=== PATIENT | female | born 1980 | race Two or more races ===

== ENCOUNTER 2019-08-08 18:06 | Emergency (ER) | payer BC, OTHER ==
[2019-08-08 18:26] VITALS: BMI 23.4
[2019-08-08] MEDS ORDERED: METOCLOPRAMIDE HCL INJECTION 10 MG/2 ML VIAL IVPUSH ONE (18:26)
[2019-08-08] MEDS ORDERED: ACETAMINOPHEN 1000 MG/100 ML VIAL (NON FORMULARY) IVPB ONE (18:26)
[2019-08-08] MEDS ORDERED: SODIUM CHLORIDE 1,000 ML IV STA (18:26)
--- NOTE | 2019-08-08 18:26 | PDOC ---
Rapid Medical Evaluation Time Seen by Provider: 08/08/19 18:20 Medical Evaluation: 08/08/19 18:21 The patient presents to the ER today for evaluation of headache starting today. Took naproxen esomoprazole with some relief of symptoms Exam: No gross neuro deficits Orders: Labs, meds Pt to proceed to the ER for further evaluation Discharge Disposition - Diagnosis Headache - Referrals - Patient Instructions - Post Discharge Activity
[2019-08-08 19:25] LABS: BASO % 1.2 % (0-2.0); EOS % 1.1 % (0-4.5); HEMATOCRIT 40.7 % (32.4-45.2); HEMOGLOBIN 13.8 GM/dL (10.7-15.3); LYMPH % 31.2 % (8-40); MCH 31.7 pg (25.7-33.7); MCHC 33.9 g/dl (32.0-36.0); MEAN CELL VOLUME 93.6 fl (80-96); MEAN PLT VOLUME 9.1 fl (7.5-11.1); MONO % 7.1 % (3.8-10.2); NEUT % 59.4 % (42.8-82.8); PLATELET COUNT 276 K/MM3 (134-434); RBC 4.35 M/mm3 (3.60-5.2); RDW 14.1 % (11.6-15.6); WHITE BLOOD COUNT 7.7 K/mm3 (4.0-10.0)
--- NOTE | 2019-08-08 20:12 | PDOC ---
History of Present Illness - General Chief Complaint: Headache Stated Complaint: DIFICULTY BREATHING Time Seen by Provider: 08/08/19 18:20 - History of Present Illness Initial Comments: 08/08/19 20:51 HPI: 39 y/o F with hx of headaches x2 years and x1 seizure currently receiving significant outpatient neurological eval presenting with headache since this morning. She said she woke up and felt a severe headache. Described as sinus pressure with radiation to BL ears. 6/10 pain and minimally relieved by home med of vimovo (naproxen formulary). Around 3pm she felt the headache get worse gradually and started feeling difficulty breathing. SOB self resolved after 10min after going outside. She denies fever, chills, emesis, photophobia, vision changes, LH, dizziness, neck stiffness, chest pain, palpitations, abd pain, dysuria. Of note, recent MRI with no acute pathology PMHx: as noted above ROS: as noted SHx: Denies tobacco use; no alcohol use; no rec drugs Allergies: NKDA ROS: GENERAL/CONSTITUTIONAL: No fever or chills. No weakness. HEAD, EYES, EARS, NOSE AND THROAT: No change in vision. No ear pain or discharge. No sore throat. CARDIOVASCULAR: No chest pain; +SOB RESPIRATORY: No cough, wheezing, or hemoptysis. GASTROINTESTINAL: No nausea, vomiting, diarrhea or constipation. GENITOURINARY: No dysuria, frequency, or change in urination. MUSCULOSKELETAL: No joint or muscle swelling or pain. No neck or back pain. SKIN: No rash NEUROLOGIC: +headache; no vertigo, loss of consciousness, or change in strength/ sensation. ENDOCRINE: No increased thirst. No abnormal weight change HEMATOLOGIC/LYMPHATIC: No anemia, easy bleeding, or history of blood clots. ALLERGIC/IMMUNOLOGIC: No hives or skin allergy. PE: GENERAL: Awake, alert, and fully oriented, no acute distress HEAD: No signs of trauma, normocephalic, atraumatic EYES: EOMI, PERRLA, sclera anicteric, conjunctiva clear ENT: Auricles normal inspection, hearing grossly normal, nares patent, oropharynx clear without exudates. Moist mucosa NECK: Normal ROM, no lymphadenopathy LUNGS: No increased work of breathing, symmetrical chest rise, clear to auscultation bilaterally, no wheezes, crackles or rhonchi HEART: Regular rate and rhythm, normal S1 and S2, no murmurs, peripheral pulses 2+ and equal bilaterally. ABDOMEN: Soft, nondistended, nontender, normoactive bowel sounds. No guarding, no rebound. No masses. No CVAT EXTREMITIES: Normal inspection, Normal range of motion, no edema. No clubbing or cyanosis. NEUROLOGICAL: Cranial nerves II through XII grossly intact. Normal speech, normal gait, no focal sensorimotor deficits SKIN: Warm, Dry, normal turgor, no rashes or lesions noted Past History - Past Medical History Allergies/Adverse Reactions: Allergies Allergy/AdvReac Type Severity Reaction Status Date / Time No Known Allergies Allergy Verified 08/08/19 19:20 COPD: No Seizures: Yes Other medical history: HEADACHE - Psycho Social/Smoking Cessation Hx Smoking History: Never smoked Hx Alcohol Use: No Drug/Substance Use Hx: No *Physical Exam - Vital Signs Last Vital Signs Temp Pulse Resp BP Pulse Ox 98.1 F 85 16 101/69 97 08/08/19 18:14 08/08/19 18:14 08/08/19 18:14 08/08/19 18:14 08/08/19 18:14 ED Treatment Course - LABORATORY CBC & Chemistry Diagram: 08/08/19 18:50 08/08/19 18:50 - ADDITIONAL ORDERS Additional order review: Laboratory Results 08/08/19 18:50 Sodium Cancelled Potassium Cancelled Chloride Cancelled Carbon Dioxide Cancelled Anion Gap Cancelled BUN Cancelled Creatinine Cancelled Est GFR (CKD-EPI)AfAm Cancelled Est GFR (CKD-EPI)NonAf Cancelled Random Glucose Cancelled Calcium Cancelled Total Bilirubin Cancelled AST Cancelled ALT Cancelled Alkaline Phosphatase Cancelled Total Protein Cancelled Albumin Cancelled 08/08/19 18:50 RBC 4.35 MCV 93.6 MCHC 33.9 RDW 14.1 MPV 9.1 Neutrophils % 59.4 Lymphocytes % 31.2 Monocytes % 7.1 Eosinophils % 1.1 Basophils % 1.2 - Medications Given in the ED: ED Medications Discontinued Medications Generic Name Dose Route Start Last Admin Trade Name Freq PRN Reason Stop Dose Admin Acetaminophen 1,000 mg 08/08/19 18:26 08/08/19 19:24 Ofirmev Injection - IVPB 08/08/19 18:27 1,000 mg ONCE ONE Administration Diphenhydramine HCl 12.5 mg 08/08/19 18:26 08/08/19 19:23 Benadryl Injection - IVPB 08/08/19 18:27 12.5 mg ONCE ONE Administration Sodium Chloride 1,000 mls @ 1,000 mls/hr 08/08/19 18:26 08/08/19 19:24 Normal Saline - IV 08/08/19 19:25 1,000 mls/hr ASDIR STA Administration Metoclopramide HCl 10 mg 08/08/19 18:26 08/08/19 19:24 Reglan Injection - IVPUSH 08/08/19 18:27 10 mg ONCE ONE Administration Medical Decision Making - Medical Decision Making 08/08/19 21:58 39 y/o F with hx of headaches x2 years and x1 seizure currently receiving significant outpatient neurological eval presenting with headache since this morning. VSS, AF. No focal neuro deficits -ivf, ofirmev, benadryl, reglan 08/08/19 22:01 patient reassessed and headache has resolved discussed with patient plan for DC and pcp followup; patient understands instruction and return pcxn and will be DCd Discharge - Discharge Information Problems reviewed: Yes Clinical Impression/Diagnosis: Headache Qualifiers: Headache type: unspecified Headache chronicity pattern: acute headache Intractability: not intractable Qualified Code(s): R51 - Headache Condition: Improved Disposition: HOME - Follow up/Referral Referrals: Yudelka Sandoval MD [Primary Care Provider] - - Patient Discharge Instructions Patient Printed Discharge Instructions: DI for Migraine Additional Instructions: Additional instructions: Please return to the ED with any or new concerning symptoms including worsening headache, weakness, slurred speech, fainting, vomiting Please followup with your PCP and neurologist Recommending appropriate sleep hygiene: minimize caffeine prior to sleep, minimize screen time prior to sleep, healthy diet, Continue taking medications as prescribed - Post Discharge Activity
--- NOTE | 2019-08-08 20:57 | PDOC ---
Documentation entered by Serafin Carlisle SCRIBE, acting as scribe for Anila Schwab MD. Anila Schwab MD: This documentation has been prepared by the Orestes humphries Nirvannie, SCRIBE, under my direction and personally reviewed by me in its entirety. I confirm that the documentation accurately reflects all work, treatment, procedures, and medical decision making performed by me. Attending Attestation - Resident Resident Name: Fabrizio Rodriguez - ED Attending Attestation I have performed the following: I have examined & evaluated the patient, The case was reviewed & discussed with the resident, I agree w/resident's findings & plan - HPI HPI: 08/08/19 20:52 39-year-old female presents with worsening headache. HPI she has had headaches almost every day since having a seizure in May. She is followed by a neurologist Dr. Akhtar and has had a recent brain MRI that was negative for any acute findings. She has also had a recent EEG done. - Physicial Exam PE: 08/08/19 20:55 Well-nourished well developed 39-year-old female in no acute distress head normocephalic atraumatic Neck supple Lungs clear to auscultation bilaterally CVS regular rate and rhythm S1-S2 Abdomen flat nontender Extremities no lower extremity edema Skin warm and dry Neuro alert and oriented x3, no focal neuro deficits Psych slightly anxious - Medical Decision Making 08/08/19 39-year-old female recently diagnosed with persistent headaches for the last 2 months who is being followed by Dr. Susan Tejeda She is been placed on Lexapro, Wellbutrin, Spironolactone and also uses a breakthrough headache medicine Vimovo (naprosyn variant) She did not have any nausea vomiting, or speech deficits or motor weakness or numbness associated with this headache 08/08/19 21:00 She came today because she was concerned that the headache was a bit worse than her usual headaches and she gave it a 6 out of 10 on the pain scale Her headache has essentially resolved and was being discharged home to follow- up with a neurologist
[2019-08-08 21:11] VITALS: BP 92/66; PULSE 80; TEMP 98
[2019-08-09 13:51] LABS: ALBUMIN 3.4 g/dl (3.4-5.0); BILIRUBIN,TOTAL 0.2 mg/dL (0.2-1); BLOOD UREA NITROGEN 6.8 mg/dL (7-18); CREATININE 0.7 mg/dL (0.55-1.3); POTASSIUM 3.6 mmol/L (3.5-5.1); TOT PROT 5.9 g/dl (6.4-8.2)
--- NOTE | 2019-08-10 10:23 | EKG ---
Test Reason : Blood Pressure : / mmHG Vent. Rate : 073 BPM Atrial Rate : 073 BPM P-R Int : 110 ms QRS Dur : 086 ms QT Int : 392 ms P-R-T Axes : 046 073 062 degrees QTc Int : 431 ms SINUS RHYTHM WITH SHORT PA OTHERWISE NORMAL ECG NO PREVIOUS ECGS AVAILABLE Confirmed by KAY PICKETT, FREDDIE ([id number]) on 08/10/2019 10:23:38 AM Referred By: Confirmed By:FREDDIE VILLANUEVA MD
== END 2019-08-08 21:16 | disposition home or self-care (01) ==
LOC: JER 18:06
PROC: 3E033GC Introduction of Other Therapeutic Substance into Peripheral Vein, Percutaneous Approach (ICD-10-PCS; principal; 2019-08-08)
PROC: 3E033GC Introduction of Other Therapeutic Substance into Peripheral Vein, Percutaneous Approach (ICD-10-PCS; 2019-08-08)
PROC: 3E033NZ Introduction of Analgesics, Hypnotics, Sedatives into Peripheral Vein, Percutaneous Approach (ICD-10-PCS; 2019-08-08)
DX: R51 Headache (principal)
CPT/HCPCS: 36415; 80053; 85025; 93005; 93010; 99283-25; J0131; J7030

== ENCOUNTER 2023-06-29 19:28 | Emergency (ER) | payer BC, OTHER ==
[2023-06-29 19:44] VITALS: BMI 22.6
[2023-06-29 21:32] VITALS: BP 124/76; PULSE 75; RESP 20; TEMP 98.2
[2023-06-29] MEDS ORDERED: METOCLOPRAMIDE HCL INJECTION 10 MG/2 ML VIAL IVPUSH ONE (21:37)
[2023-06-29] MEDS ORDERED: DEXAMETHASONE SOD PHOSPHATE 20 MG/5 ML VIAL IVPB ONE (21:39)
[2023-06-29] MEDS ORDERED: DEXAMETHASONE SOD PHOSPHATE 10 MG/1 ML VIAL ONE (21:46)
[2023-06-29] MEDS ORDERED: METOCLOPRAMIDE HCL INJECTION 10 MG/2 ML VIAL ONE (21:46)
== END 2023-06-30 00:05 | disposition home or self-care (01) ==
LOC: JER 19:28
PROC: 3E033GC Introduction of Other Therapeutic Substance into Peripheral Vein, Percutaneous Approach (ICD-10-PCS; principal; 2023-06-29)
PROC: 3E033GC Introduction of Other Therapeutic Substance into Peripheral Vein, Percutaneous Approach (ICD-10-PCS; 2023-06-29)
PROC: 3E033GC Introduction of Other Therapeutic Substance into Peripheral Vein, Percutaneous Approach (ICD-10-PCS; 2023-06-29)
DX: G43.109 Migraine with aura, not intractable, without status migrainosus (principal); R51.9 Headache, unspecified; H53.8 Other visual disturbances
CPT/HCPCS: 70450-TC; 99284-25

== ENCOUNTER 2024-10-25 11:39 | Emergency (ER) | payer BC ==
[2024-10-25 11:47] VITALS: BP 111/66; PULSE 73; RESP 18; TEMP 98.6; BMI 31.0
[2024-10-25] MEDS ORDERED: KETOROLAC TROMETHAMINE 15 MG/ML VIAL ONE (14:20)
[2024-10-25] MEDS ORDERED: METOCLOPRAMIDE HCL INJECTION 10 MG/2 ML VIAL ONE (14:20)
[2024-10-25] MEDS: KETOROLAC TROMETHAMINE 30 MG/1 ML VIAL IVPUSH ONE (14:25)
[2024-10-25] MEDS: SODIUM CHLORIDE 1,000 ML IV STA (14:25)
[2024-10-25] MEDS: METOCLOPRAMIDE HCL INJECTION 10 MG/2 ML VIAL IVPUSH ONE (14:25)
[2024-10-25 14:59] LABS: BASO % 0.5 % (0-2.0); HEMOGLOBIN 14.6 GM/dL (10.7-15.3); LYMPH % 37.3 % (8-40); MCH 30.5 pg (25.7-33.7); MCHC 33.9 g/dl (32.0-36.0); MEAN CELL VOLUME 90.1 fl (80-96); MEAN PLT VOLUME 7.8 fl (7.5-11.1); MONO % 5.5 % (3.8-10.2); NEUT % 55.7 % (42.8-82.8); PLATELET COUNT 259 10^3/uL (134-434); RBC 4.78 M/mm3 (3.60-5.2); RDW 12.6 % (11.6-15.6); WHITE BLOOD COUNT 5.3 K/mm3 (4.0-10.0)
[2024-10-25 15:28] LABS: BLOOD UREA NITROGEN 9.5 mg/dL (7-18); CALCIUM 9.7 mg/dL (8.5-10.1)
[2024-10-25 15:31] LABS: CREATININE 0.6 mg/dL (0.55-1.3)
[2024-10-25 15:33] LABS: BILIRUBIN,TOTAL 0.5 mg/dL (0.2-1); TOT PROT 7.5 g/dl (6.4-8.2)
[2024-10-25 16:22] LABS: HIV INTERPRETATION NEGATIVE (NEGATIVE)
== END 2024-10-25 17:23 | disposition home or self-care (01) ==
LOC: JER 11:39
PROC: 3E033NZ Introduction of Analgesics, Hypnotics, Sedatives into Peripheral Vein, Percutaneous Approach (ICD-10-PCS; principal; 2024-10-25)
PROC: 3E033GC Introduction of Other Therapeutic Substance into Peripheral Vein, Percutaneous Approach (ICD-10-PCS; 2024-10-25)
PROC: 3E0337Z Introduction of Electrolytic and Water Balance Substance into Peripheral Vein, Percutaneous Approach (ICD-10-PCS; 2024-10-25)
DX: R51.9 Headache, unspecified (principal); R11.0 Nausea; R05.9 Cough, unspecified; Z20.822 Contact with and (suspected) exposure to COVID-19
CPT/HCPCS: 0241U-QW; 36415; 80053; 82550; 84484; 85025; 85651; 86803; 87389; 93005; 93010; 99284-25

== ENCOUNTER 2025-03-15 08:59 | Emergency (ER) | payer BC ==
[2025-03-15 09:06] VITALS: RESP 18; TEMP 97.9
[2025-03-15] MEDS ORDERED: METOCLOPRAMIDE HCL INJECTION 10 MG/2 ML VIAL ONE (10:16)
[2025-03-15] MEDS ORDERED: ACETAMINOPHEN 325 MG TABLET (FP) ONE (10:16)
[2025-03-15] MEDS: ACETAMINOPHEN 325 MG TABLET (FP) PO ONE (10:38)
[2025-03-15] MEDS: SODIUM CHLORIDE 1,000 ML IV STA (10:38)
[2025-03-15] MEDS: METOCLOPRAMIDE HCL INJECTION 10 MG/2 ML VIAL IVPUSH ONE (10:38)
[2025-03-15 13:07] VITALS: BP 96/69; PULSE 84
== END 2025-03-15 13:48 | disposition home or self-care (01) ==
LOC: JER 08:59
PROC: 3E033GC Introduction of Other Therapeutic Substance into Peripheral Vein, Percutaneous Approach (ICD-10-PCS; principal; 2025-03-15)
PROC: 3E0337Z Introduction of Electrolytic and Water Balance Substance into Peripheral Vein, Percutaneous Approach (ICD-10-PCS; 2025-03-15)
DX: R51.9 Headache, unspecified (principal); R11.0 Nausea; R68.83 Chills (without fever); H53.149 Visual discomfort, unspecified; R42 Dizziness and giddiness
CPT/HCPCS: 99284-25